=== PATIENT | male | born 1945 | race Caucasian/White ===

== ENCOUNTER 2017-12-07 05:35 | Observation (INO) | payer MEDICARE ==
[~2017-12-07] VITALS: Ht 175.3 cm; Wt 74.0 kg
[~2017-12-07 05:35] MED LIST: ASPI-496 PO; ASPI325T80 PO; ATOR40TA PO; CAPT12.52 PO; CARV12.52 PO; CLOP75TA52 PO; FENO145T30 PO; FENO160T PO; ISOS20TA3 PO; ISOS5TAB2 PO; LANS30CA60 PO; METO-93 PO; NITR0.4T28 SL; PANT40TA5 PO; PRAS10TA4 PO; SIMV40TA3 PO; SUCR1TAB PO
[2017-12-07] MEDS ORDERED: HYAL1CAP PO (06:16)
[2017-12-07 06:18] LABS: BASOPHILS # (AUTO) 0.02 x10^3/uL (0-0.1); BASOPHILS % (AUTO) 0 % (0-1); EOSINOPHILS # (AUTO) 0.18 x10^3/uL (0-0.4); EOSINOPHILS % (AUTO) 3 % (1-7); LYMPHOCYTES # (AUTO) 1.52 x10^3/uL (1-3.4); LYMPHOCYTES % (AUTO) 23 % (22-44); MD NO; MEAN CORPUSCULAR HEMOGLOBIN 31.8 pg (27.5-34.5); MEAN CORPUSCULAR HGB CONC 34.2 g/dL (33.2-36.2); MEAN CORPUSCULAR VOLUME 92.9 fL (81-97); MEAN PLATELET VOLUME 7.4 fL (7.4-10.4); MONOCYTES % (AUTO) 7 % (2-9); NEUTROPHILS # (AUTO) 4.52 x10^3/uL (1.8-6.8); NEUTROPHILS % (AUTO) 67 % (42-75); PLATELET COUNT 139 x10^3/uL (130-400); RED BLOOD COUNT 5.37 x10^6/uL (4.38-5.82); RED CELL DISTRIBUTION WIDTH 14.1 % (9.4-14.8)
[2017-12-07] MEDS ORDERED: ASPIRIN 81 MG TABLET CHEW ONE (06:19)
[2017-12-07 06:30] LABS: ANION GAP 7 mmol/L (5-15); CHLORIDE 110 mmol/L (98-107); CREATININE 1.18 mg/dL (0.7-1.3)
[2017-12-07] MEDS ORDERED: ASPIRIN 81 MG TABLET CHEW PO ONE (06:30)
[2017-12-07 06:34] LABS: TROPONIN I < 0.015 ng/mL (0.000-0.045)
[2017-12-07] MEDS ORDERED: NITROGLYCERIN 0.4 MG BOTTLE (25 TABS) SL PRN (08:30)
[2017-12-07] MEDS ORDERED: NITROGLYCERIN 0.4 MG/SPRAY SL PRN (08:30)
[2017-12-07] MEDS ORDERED: ONDANSETRON 2MG/ML, 2ML IVPush PRN (08:30)
[2017-12-07] MEDS ORDERED: LABETALOL 5MG/ML, 20ML IVPush PRN (08:30)
[2017-12-07 08:45] VITALS: BP 154/90
[2017-12-07 09:02] VITALS: BP 134/88
[2017-12-07 12:22] LABS: TROPONIN I < 0.015 ng/mL (0.000-0.045)
[2017-12-07 13:19] VITALS: BP 134/88
[2017-12-07 18:53] VITALS: BP 144/86
[2017-12-07] MEDS: DOXYCYCLINE 100MG TABLET PO SCH (23:17)
[2017-12-08 00:34] VITALS: BP 131/81
[2017-12-08 07:10] VITALS: BP 142/93
[2017-12-08] MEDS ORDERED: REGADENOSON 0.4 MG/5 ML SYRINGE ONE (08:01)
[2017-12-08] MEDS: DOXYCYCLINE 100MG TABLET PO SCH (11:20)
[2017-12-08] MEDS ORDERED: DOXY100T PO (12:50)
[2017-12-08 13:35] VITALS: BP 137/89
== END 2017-12-08 15:04 | disposition home or self-care (01) ==
LOC: ED 07:15 → EDIP 07:34 → INTOOBSV 07:34 → 5SO 08:36
PROVIDERS: ADMIT Family Medicine; ATTEND Family Medicine
DX: R07.89 Other chest pain (principal); J18.9 Pneumonia, unspecified organism; K21.9 Gastro-esophageal reflux disease without esophagitis; I25.10 Atherosclerotic heart disease of native coronary artery without angina pectoris; E78.5 Hyperlipidemia, unspecified; I10 Essential (primary) hypertension; I24.9 Acute ischemic heart disease, unspecified; I25.2 Old myocardial infarction; K22.70 Barrett's esophagus without dysplasia; Z87.891 Personal history of nicotine dependence; Z95.5 Presence of coronary angioplasty implant and graft
CPT/HCPCS: 36415; 71045; 78452; 80048; 82040; 83690; 83880; 84484; 85025; 85379; 93005; 93017; 93306; 99285; A9502; C9898; G0378; J2785

== ENCOUNTER → 2018-07-23 | Outpatient (CLI) | payer MEDICARE ==
[~2018-07-23] MED LIST changes: +DOXY100T PO; +HYAL1CAP PO
== END | disposition home or self-care (01) ==
LOC: RAD 10:32
DX: R16.1 Splenomegaly, not elsewhere classified (principal); I51.89 Other ill-defined heart diseases; M54.6 Pain in thoracic spine; Z90.49 Acquired absence of other specified parts of digestive tract
CPT/HCPCS: 76700